=== PATIENT | female | born 1955 | race African-American/Black ===

== ENCOUNTER 2016-09-28 22:21 | Inpatient (IN) | payer OTHER ==
--- NOTE | ~2016-09-28 | CR72 ---
[facility] A Service of [facility] & [facility] RADIOLOGY TEXT RESULTS PATIENT: IVELISSE ALFONSO LOCATION: [facility] 463- : 56 UNIT #: [id number] AGE: [address]: Lillie Stanley MD SEX: F ORDER DR: [id number] [facility] [address] [place], [place] [address] [id number] I MR#: [id number] Acc #: [id number] NAME: IVELISSE ALFONSO : 1955 SEX: F STUDY DATE/TIME: 09/28/2016 19:42 UNIT: CEDOF ROOM: [id number] STUDY DESCRIPTION: CR Chest Single View Portable Attending Physician: Ina Fonseca M.D. Ordering Physician: Ingrid Robins M.D. Primary Care Physician: Evy Mendoza M.D. MEDICAL IMAGING REPORT This report is preliminary unless electronic signature is present EXAM Portable chest 09/28 COMPARISON 09/19/2014 HISTORY History supplied is shortness of breath, nausea, weakness beginning today. FINDINGS An AP portable view is obtained. Cardiac size in the patient appears normal. Vascular pattern is normal. Lungs are clear. CONCLUSION Negative portable chest. Dictated by... Kalia Guerrero M.D. THIS IS AN ELECTRONICALLY VERIFIED REPORT Kalia Guerrero M.D. at 09/29/2016 10:35 AM VIPUL/davon TD: 09/29/2016 05:05 JOB #: [id number] MEDICAL IMAGING REPORT Page 1 of 1 COPY
--- NOTE | ~2016-09-28 | CO ---
Unit #: [id number] #: [id number] Patient: IVELISSE ALFONSO [id number] [address] [place], [place] [address] [id number] I MR#: [id number] NAME: IVELISSE ALFONSO ROOM: 463 Age: 61 Sex: F Admission Date: 09/29/2016 : 1955 Attending Physician: Lillie Stanley M.D. Primary Care Physician: Evy Mnedoza M.D. Consultation Date: 09/30/2016 CONSULTATION REPORT REASON FOR CONSULTATION Staphylococcus aureus bacteremia. HISTORY OF PRESENT ILLNESS The patient is a 61-year-old female with a history of asthma, schizoaffective disorder, ovarian cancer, and postoperative PE, admitted with lightheadedness. Did not have any fever or chills with no loss of consciousness. No chest pain. No shortness of breath. She had a recent treatment for possible urinary tract infection with ciprofloxacin. She was a little bit hypotensive when she came in. As part of workup, two sets of blood culture were done; one is being reported as Staphylococcus aureus; second is gram-positive cocci. A transesophageal echo has been ordered. She is on vancomycin. Infectious Disease consultation is requested for further evaluation and antibiotic management. The patient at this time is complaining of some back pain and hip pain, which to the patient is not new, but may have increased in the last few weeks. No trauma. No injury. PAST MEDICAL HISTORY 1. Asthma. 2. Schizoaffective disorder. 3. Degenerative joint disease. 4. Herniated disk. 5. Ovarian cancer, status post total abdominal hysterectomy and bilateral salpingo-oophorectomy and chemotherapy. 6. Pulmonary embolism. 7. Right wrist surgery. 8. Radiation therapy for ovarian cancer. SOCIAL HISTORY Noncontributory. FAMILY HISTORY Noncontributory. ALLERGIES She is allergic to penicillin, which causes hives. MEDICATIONS Current medication list reviewed. Antibiotics include vancomycin. PHYSICAL EXAMINATION GENERAL: Lying in bed, does not seem to be in any distress. VITAL SIGNS: T-max 100.2, temperature 97.5, pulse 73, respirations 18, Unit #: [id number] #: [id number] Patient: IVELISSE ALFONSO blood pressure 131/75. HEENT: Unremarkable. CHEST: Clear to auscultation. HEART: Normal S1 and S2. ABDOMEN: Soft, nontender. EXTREMITIES: Show no edema. No significant focal tenderness on the spine was noted and the right hip was also without any significant tenderness or limitation with range of movement. DIAGNOSTIC STUDIES IMAGING STUDIES: CT angio negative for pulmonary embolism. Some hilar lymphadenopathy was noted. Chest x-ray negative for acute infiltrates. Lower extremity Doppler negative for deep vein thrombosis. LABORATORY RESULTS: BUN 12, creatinine 0.5. Lactic acid 0.8. WBC 13.2, hemoglobin 10.4, platelets 172. Urinalysis unremarkable. Blood culture 1/2 Staphylococcus aureus, sensitivity is pending; the other one is gram-positive cocci in clusters, identification and sensitivity are pending. ASSESSMENT Staphylococcus aureus bacteremia, question source. PLAN At this time, I noted that transesophageal echo has been ordered, which I think can be held off at this time as we have more obvious possibility of a hip or a back infection with bacteremia, low-grade fever, and pain in those 2 areas plus transesophageal echo may be a little too early as if it is negative and there is no other source identified. It will need to be repeated. At this time, I would go ahead and hold on the transesophageal echo, get a 2D echo, follow up on the results of MRI of the spine and hip that has been ordered, continue with vancomycin, follow up on the final identification of the cultures. Further recommendation depending upon the course. I would like to thank, Dr. Stanley, for requesting us to participate in the care of this patient. We will follow this patient along with you. Dictated by... Keith Esquivel TD: 10/03/2016 02:07 JOB #: [id number] Unit #: [id number] #: [id number] Patient: IVELISSE ALFONSO CONSULTATION REPORT Page 1 of 1 X Gwyn Mahoney MD CONSULTATION REPORT
--- NOTE | ~2016-09-28 | MR81 ---
[facility] A Service of [facility] & [facility] RADIOLOGY TEXT RESULTS PATIENT: IVELISSE ALFONSO LOCATION: [facility] 463-01 : 57 UNIT #: [id number] AGE: [address]: Lillie Stanley MD SEX: F ORDER DR: [id number] [facility] [address] [place], [place] [address] [id number] I MR#: [id number] Acc #: [id number] NAME: IVELISSE ALFONSO : 1955 SEX: F STUDY DATE/TIME: 10/01/2016 9:09 UNIT: [facility] ROOM: [facility] STUDY DESCRIPTION: MR Hip WWo Contrast Rt Attending Physician: Lillie Stanley M.D. Ordering Physician: Lillie Stanley M.D. Primary Care Physician: vEy Mendoza M.D. MRI CENTER REPORT This report is preliminary unless electronic signature is present. EXAM MRI of the right hip and pelvis. HISTORY Worsening right hip pain, staph aureus bacteremia. Clinical concern for septic arthritis. Fever, back pain. TECHNIQUE Multiplanar multiecho imaging was performed of the hips and pelvis utilizing a high field magnet and dedicated protocol. Axial T1-weighted images were performed following IV gadolinium. FINDINGS Bone structure and alignment appears normal. No focal marrow edema is identified to suggest occult fracture, bone lesion, or septic joint. Detailed imaging of the hip joints demonstrates mild arthritic changes of the right hip joint with some asymmetric joint space narrowing and a small amount of subchondral cystic change weightbearing aspect of the right hip joint. No significant articular cartilage loss demonstrated. No hip effusion. No abnormal enhancement postcontrast. SI joints appear normal. There is mild hamstring tendinopathy at the origin of the hamstrings bilaterally. Internal pelvic structures unremarkable. Normal tendinous attachments about the hips. IMPRESSION 1. No MRI findings to suggest septic arthritis of the hip. Patient may demonstrate some very early degenerative changes of both hips, right greater than left, but again no evidence of a joint effusion or significant marrow edema. 2. Minimal tendinopathy origin of the hamstrings bilaterally, probably not clinically significant. STS[facility] A Service of [facility] & [facility] RADIOLOGY TEXT RESULTS PATIENT: IVELISSE ALFONSO LOCATION: [facility] 463-01 : [birth year] UNIT #: [id number] AGE: [address]: Lillie Stanley MD SEX: F ORDER DR: Dictated by... Yosef Coats M.D. THIS IS AN ELECTRONICALLY VERIFIED REPORT Yosef Coats M.D. at 10/02/2016 10:51 PM TAVON/good TD: 10/02/2016 07:33 JOB #: [id number] MRI CENTER REPORT Page 1 of 1 COPY
--- NOTE | ~2016-09-28 | EKG ---
PATIENT: IVELISSE ALFONSO UNIT #: [id number] Ventricular Rate: 133 BPM Atrial Rate: 133 BPM P-R Interval: 154 ms QRS Duration: 82 ms Q-T Interval: 272 ms QTC Calculation(Bezet): 404 ms P [place]: 55 degrees Calculated R [place]: 17 degrees Calculated T [place]: 38 degrees Diagnosis Line: Sinus tachycardia Diagnosis Line: Left atrial enlargement Diagnosis Line: Otherwise normal ECG Diagnosis Line: When compared with ECG of 16-AUG-2015 20:45, Diagnosis Line: No significant change was found Diagnosis Line: Confirmed by ANGEL KENT MD ([id number]) on 09/30/2016 Diagnosis Line: 9:32:55 AM INTERPRETING MD: DONTE ARROYO
--- NOTE | ~2016-09-28 | MR112 ---
[facility] A Service of [facility] RADIOLOGY TEXT RESULTS PATIENT: IVELISSE ALFONSO LOCATION: [facility] 463-01 : [birth year] UNIT #: [id number] AGE: [address]: Lillie Stanley MD SEX: F ORDER DR: [id number] [facility] [address] [place], [place] [address] [id number] I MR#: [id number] Acc #: [id number] NAME: IVELISSE ALFONSO : 1955 SEX: F STUDY DATE/TIME: 10/01/2016 9:09 UNIT: [facility] ROOM: [facility] STUDY DESCRIPTION: MR Lumbar WWo Contrast Attending Physician: Lillie Stanley M.D. Ordering Physician: Lillie Stanley M.D. Primary Care Physician: Evy Mendoza M.D. MRI CENTER REPORT This report is preliminary unless electronic signature is present. EXAM MRI lumbar spine without and with IV gadolinium. HISTORY Bacteremia. Minimal back pain for 4 days. FINDINGS MRI lumbar spine was performed without and with IV gadolinium. Lumbar alignment is satisfactory. Normal signal in the tip of the conus at L1-L2. Normal marrow signal. Normal intervertebral disc signal. There is minimal disc bulging at L1-L2, primarily to the right of midline. There is also minimal diffuse disc bulging at L5-S1. No additional lumbar disc bulge or protrusion. Mild bilateral facet and ligamentous hypertrophy at all lumbar levels, slightly greater at L5-S1, but no significant central canal narrowing or outlet foraminal narrowing. No abnormal enhancement with gadolinium. IMPRESSION 1. No focal disc bulge or protrusion. 2. No abnormal enhancement with gadolinium. 3. No significant lumbar central canal narrowing or outlet foraminal narrowing. 4. Very mild disc bulging at L1-L2 and L5-S1. 5. Mild multilevel degenerative facet arthropathy and mild ligamentous hypertrophy. Dictated by... Franco Craig M.D. [facility] A Service of [facility] RADIOLOGY TEXT RESULTS PATIENT: IVELISSE ALFONSO LOCATION: [facility] 463-01 : 57 UNIT #: [id number] AGE: [address]: Lillie Stanley MD SEX: F ORDER DR: THIS IS AN ELECTRONICALLY VERIFIED REPORT Francomichelle Craig M.D. at 10/02/2016 5:15 PM DFL/maikel TD: 10/02/2016 05:27 JOB #: [id number] MRI CENTER REPORT Page 1 of 1 COPY
--- NOTE | ~2016-09-28 | DS ---
Unit #: [id number] #: [id number] Patient: IVELISSE ALFONSO [id number] [address] [address] [id number] I MR#: [id number] NAME: IVELISSE ALFONSO ROOM: 463 Age: 61 Sex: F Admission Date: 09/29/2016 : 1955 Discharge Date: 10/04/2016 Attending Physician: Lillie Stanley M.D. Primary Care Physician: Eyv Mendoza M.D. DISCHARGE SUMMARY ADDENDUM HOSPITAL COURSE The patient has fortunately been accepted to [facility] for IV antibiotics and will be discharged there instead of home with home health. DISCHARGE INSTRUCTIONS/MEDICATIONS As previously dictated. Dictated by... Lillie Stanley M.D. SHANI/pete TD: 10/04/2016 13:34 JOB #: [id number] DISCHARGE SUMMARY Page 1 of 1 X Lillie Stanley MD X DISCHARGE SUMMARY
--- NOTE | ~2016-09-28 | US84 ---
[id number] [facility] [address] [place], [place] [address] [id number] I MR#: [id number] Acc #: [id number] NAME: IVELISSE ALFONSO : 1955 SEX: F STUDY DATE/TIME: 09/29/2016 16:20 UNIT: [facility] ROOM: 463 STUDY DESCRIPTION: US LE Veins Complete Puma Stdy Attending Physician: Lillie Stanley M.D. Ordering Physician: Ina Fonseca M.D. Primary Care Physician: Evy Mendoza M.D. MEDICAL IMAGING REPORT This report is preliminary unless electronic signature is present EXAM Bilateral lower extremity Doppler venous ultrasound. DATE OF EXAMINATION 09/29/2016 HISTORY Bilateral lower extremity pain left greater right for the past 2-3 days. Previous history of blood clots in 2011, currently on blood thinners. COMPARISON None. TECHNIQUE Venous ultrasound examination of both lower extremities was performed using grayscale, spectral Doppler and color flow Doppler imaging. FINDINGS The examination is negative. There is no evidence of deep venous thrombus from the groin to the lower calf bilaterally. Visualized greater saphenous veins are also patent. IMPRESSION Negative examination. No evidence of lower extremity deep venous thrombosis. Dictated by... Tiny Barker M.D. THIS IS AN ELECTRONICALLY VERIFIED REPORT Tiny Barker M.D. at 09/30/2016 5:13 PM [place] TD: 09/29/2016 18:34 JOB #: [id number] MEDICAL IMAGING REPORT Page 1 of 1 COPY
--- NOTE | ~2016-09-28 | CO ---
Unit #: [id number] #: [id number] Patient: IVELISSE ALFONSO [id number] [address] [place], [place] [address] [id number] I MR#: [id number] NAME: IVELISSE ALFONSO ROOM: 463 Age: 61 Sex: F Admission Date: 09/29/2016 : 1955 Attending Physician: Lillie Stanley M.D. Primary Care Physician: Evy Mendoza M.D. Consultation Date: 09/29/2016 CONSULTATION REPORT REASON FOR CONSULT Thyrotoxicosis. HISTORY OF PRESENT ILLNESS This is a 61-year-old black female with history of schizoaffective disorder. She presented to the emergency room for not feeling well, having weakness, dizzy spells, palpitations, and she lost more than 30 pounds over the last 4-6 weeks. Also has some nausea. In the emergency room she had a fever of 101, and her heart rate was 120 to 130s. She was started on beta-blockers. On further labs she was found to have TSH of 0.05, free T4 of 3.11. I have been asked to see the patient for further evaluation. REVIEW OF SYSTEMS A 10-point review of systems is completed. Please see HPI. Remarkable for weight loss, palpitations, nausea, vomiting, weakness, fatigue and tremors. PAST MEDICAL HISTORY 1. Schizoaffective disorder. 2. Asthma. 3. History of postop PE. 4. History of ovarian cancer. PAST SURGICAL HISTORY Hysterectomy. ALLERGIES Penicillin. HOME MEDICATIONS List is reviewed. CURRENT MEDICATIONS Include propranolol 20 mg b.i.d., Tapazole 10 mg t.i.d. PHYSICAL EXAMINATION GENERAL: She is comfortable, no acute distress. VITAL SIGNS: Her vitals are stable. Temperature is 97.9, pulse 76, respirations 18, blood pressure 137/95. HEENT: EOMI. Pupils equally react to light. NECK: Supple. She does have thyromegaly and (1) on exam. No bruit noted. CHEST: Good air entry. CVS: Regular rhythm. S1 and S2. No murmurs. Unit #: [id number] #: [id number] Patient: LAGANTTA,PERITA ABDOMEN: Soft. Nontender. Bowel sounds positive. EXTREMITIES: Has some fine tremors of upper extremities. NEUROLOGIC: Nonfocal. Moving all extremities. DIAGNOSTIC STUDIES LABORATORY: Labs were reviewed. TSH 0.05, free T4 3.11. ASSESSMENT Thyrotoxicosis that seems most likely due to primary hyperthyroidism. PLAN The patient is clinically symptomatic. Agree with methimazole. Will change the dose to 10 mg twice daily. Continue propranolol 20 mg b.i.d. She will need thyroid uptake scan as an outpatient. I will see her back in my office in 2-3 weeks for further management. Dictated by... Keith Jensen/ty TD: 09/30/2016 07:33 JOB #: [id number] CONSULTATION REPORT Page 1 of 1 X Yuki Guaman MD X CONSULTATION REPORT
--- NOTE | ~2016-09-28 | MR175 ---
[facility] A Service of [facility] & [facility] RADIOLOGY TEXT RESULTS PATIENT: IVELISSE ALFONSO LOCATION: [facility] 463-01 : 57 UNIT #: [id number] AGE: [address]: Lillie Stanley MD SEX: F ORDER DR: [id number] [facility] [address] [place], [place] [address] [id number] I MR#: [id number] Acc #: [id number] NAME: IVELISSE ALFONSO : 1955 SEX: F STUDY DATE/TIME: 10/01/2016 9:09 UNIT: [facility] ROOM: [facility] STUDY DESCRIPTION: MR Thoracic WWo Contrast Attending Physician: Lillie Stanley M.D. Ordering Physician: Lillie Stanley M.D. Primary Care Physician: Evy Mendoza M.D. MRI CENTER REPORT This report is preliminary unless electronic signature is present. EXAM MRI thoracic spine without and with IV gadolinium. HISTORY Bacteremia. Back pain for 4 days. Mid to low back pain. Fever. FINDINGS MRI thoracic spine was performed without and with IV gadolinium. Exam sensitivity is partly limited by motion. No thoracic cord signal abnormality or enlargement or displacement. No marrow edema. No abnormal intervertebral disc signal. Mild degenerative disc space narrowing at multiple mid-thoracic levels. Small left paracentral disc protrusion at T5-T6. No additional disc bulge or protrusion is identified. No significant central canal narrowing. No abnormal enhancement with gadolinium. No significant central canal narrowing or outlet foraminal narrowing is identified. IMPRESSION 1. Mild left paracentral disc bulge T5-T6. 2. No additional thoracic disc bulge or protrusion. 3. No marrow signal abnormality. No significant thoracic central canal narrowing or outlet foraminal narrowing. 4. No abnormality is identified within the thoracic cord. 5. No abnormal enhancement with gadolinium. Dictated by... Franco Craig M.D. THIS IS AN ELECTRONICALLY VERIFIED REPORT Franco Craig M.D. at 10/02/2016 5:14 PM DFL/rnr [facility] A Service of [facility] & [facility] RADIOLOGY TEXT RESULTS PATIENT: IVELISSE ALFONSO LOCATION: [facility] 463-01 : 57 UNIT #: [id number] AGE: [address]: Lillie Stanley MD SEX: F ORDER DR: TD: 10/02/2016 05:39 JOB #: [id number] MRI CENTER REPORT Page 1 of 1 COPY
--- NOTE | ~2016-09-28 | DS ---
Unit #: [id number] #: [id number] Patient: IVELISSE RANKIN 100[address] [place], [place] [address] [id number] I MR#: [id number] NAME: IVELISSE RANKIN ROOM: 463 Age: 61 Sex: F Admission Date: 09/29/2016 : 1955 Discharge Date: 10/04/2016 Attending Physician: Lillie Stanley M.D. Primary Care Physician: Evy Mendoza M.D. DISCHARGE SUMMARY PRINCIPAL DIAGNOSES 1. Sepsis secondary to methicillin-sensitive Staphylococcus aureus bacteremia with unknown primary infection. 2. Hyperthyroidism. 3. Normocytic anemia. 4. Schizoaffective disorder maintained on Invega. 5. Degenerative disc disease of the lumbar spine. 6. Asthma. 7. History of ovarian cancer. 8. Obesity. 9. Moderate mitral regurgitation. CONSULTANTS 1. Dr. Mahoney, Infectious Disease. 2. Dr. Guaman, Endocrinology. PROCEDURES 1. Two-dimensional echocardiogram on September 30, 2016, with ejection of 50 to 55%. Impaired relaxation consistent with grade one diastolic dysfunction noted. 2. Transesophageal echocardiogram on October 03, 2016, with ejection fraction of 50 to 55%. No evidence of PFO or atrioseptal defect. No vegetation. No clot in the left atrial appendage. Thickened mitral valve and aortic valve leaflets are noted. Moderate mitral regurgitation. Mild atherosclerosis of the aorta noted. 3. Chest x-ray on September 28, 2016, which was normal. 4. CT angiogram of the chest on September 29, 2016, which was negative for PE. Subcarinal and hilar adenopathy is noted. This causes extrinsic compression of the right upper lobe pulmonary artery. Small nodule in the right lower lobe is stable since 2010. 5. Bilateral extremity venous Doppler which is negative for PE. 6. MRI of lumbar spine with and without contrast on October 01, 2016, with no abnormal enhancement. No significant lumbar central canal narrowing or outlet foraminal narrowing. Disc bulging at L1-2 and L5-S1. 7. MRI of thoracic spine with and without contrast on October 01, 2016, with left paracentral disc bulge at T5-T6. No marrow signal abnormality. No thoracic central canal narrowing or outlet foraminal narrowing. 8. MRI of right hip with and without contrast on October 01, 2016, with no evidence of septic arthritis. Degenerative changes noted. CLINICAL HISTORY AND HOSPITAL COURSE Ms. Rankin is a nice 61-year-old -[place] female who presents to Unit #: [id number] #: [id number] Patient: IVELISSE RANKIN the emergency department with fever and lightheadedness. She was also having nausea, vomiting. Please refer to H and P for further details. The patient was febrile in the emergency department with a temperature of 101.6. She was also tachycardiac with a heart rate in the thirties. Initial screening for infection was negative in the ER including a negative chest x-ray, CT angiogram of the chest and urinalysis and she was initially placed in observation for evaluation. In regards to the patient's tachycardia, she did have a TSH done and her TSH was found to be significantly low at less than 0.05. This was found in conjunction with an elevated free T4 of 3.11. The patient was placed on methimazole empirically and Dr. Guaman was consulted. Dose of methimazole was decreased and patient was maintained on her home dose of propranolol. The plan is for patient to follow up with Dr. Guaman as an outpatient for a thyroid uptake scan and further definitive treatment. The patient's fever and tachycardia has improved on treatment. It was initially felt that perhaps the patient's hyperthyroidism was causing her symptoms. However, blood cultures done upon admission, one of two grew methicillin-sensitive Staphylococcus aureus and patient was changed to inpatient status. She was empirically started on vancomycin prior to identification of culture and, upon identification of Staph. aureus, Infectious Disease was consulted. In a search for a primary source of infection, the patient under MRI of her back and hip given these were new and/or worsening pain. However, all these MRIs were negative. Initial transthoracic echocardiogram was normal and DIANE a few days later was also negative. A source of infection remains unclear but recent blood cultures are remaining negative. I will not second blood culture upon admission did ultimately also grow MSSA. The patient will be maintained on Kefzol through date as outlined above and have removal of mid line following discontinuation of antibiotics. The patient's other chronic conditions remained stable. She can be discharged home later today with plans for home health. DISCHARGE CONDITION Stable. DISCHARGE STATUS Discharged to home with home health for IV antibiotics. DISCHARGE MEDICATIONS 1. Gabapentin 400 mg p.o. t.i.d. with 800 mg at bedtime. 2. Benadryl 50 mg half a tablet p.o. t.i.d. 3. Arimidex 1 mg daily. 4. Methimazole 10 mg p.o. b.i.d. 5. Inderal 40 mg at bedtime. 6. Zocor 20 mg at bedtime. 7. Bromocriptine 5 mg daily. 8. Diclofenac 75 mg b.i.d. 9. Baclofen 10 mg p.o. t.i.d. 10. Cephazolin 2 gm IV q.8 hours to be dosed through October 17, 2016. 11. The patient will continue Invega junctions monthly 156 mg as being received through [facility]. DISCHARGE INSTRUCTIONS 1. The patient was instructed to follow a Heart Healthy diet. 2. She can increase her activity as tolerated. Unit #: [id number] #: [id number] Patient: IVELISSE RANKIN 3. She needs weekly CBC, BMP on antibiotics with results faxed to Dr. Mott/Dr. Mahoney. 4. She discontinuation of mid line after last dose of IV antibiotics. FOLLOWUP 1. The patient will follow up with Dr. Guaman in approximately four weeks and, again, needs outpatient thyroid uptake scan and likely will require referral from her primary care provider. 2. She can follow up with her primary care provider, Evy Mendoza M.D., in two weeks and will continue, again, with Invega as she was receiving as an outpatient. Time spent on discharge-32 minutes. Dictated by... Lillie Stanley M.D. Declan/khai TD: 10/04/2016 13:09 JOB #: [id number] DISCHARGE SUMMARY Page 1 of 1 X Lillie Stanley MD X DISCHARGE SUMMARY
--- NOTE | ~2016-09-28 | HP ---
Unit #: [id number] #: [id number] Patient: IVELISSE ALFONSO 338247 [address] [place], [place] [address] [id number] I MR#: [id number] NAME: IVELISSE ALFONSO ROOM: 64885 Age: 61 Sex: F Admission Date: 09/29/2016 : 1955 Attending Physician: Ina Fonseca M.D. Primary Care Physician: Evy Mendoza M.D. HISTORY AND PHYSICAL CHIEF COMPLAINT Postural lightheadedness, sinus tachycardia, nausea and vomiting. HISTORY This pleasant 61-year-old female with asthma, schizoaffective disorder, treatment for ovarian cancer with remote postop PE, is admitted for complaints of lightheadedness. Patient states that she was in her usual state of health until four days prior to admission when she began to experience postural lightheadedness. He has been somewhat short of breath recently with chest discomfort. Notes left calf pain. More recently nausea and vomiting. She was seen at [facility] and given her monthly Invega Sustenna injection. She was told that she was tachycardic at that time with an elevated blood pressure. She presents to this emergency department where she does have a temperature of 101.6. States that she was placed on Cipro recently for UTI and dysuria with improvement of her symptoms. In the ER, patient's heart rates have been in the 130s. Her workup in terms of infectious etiology thus far is negative. In the ER she was boluses with IV fluids, given Tylenol, Zofran, and currently is feeling somewhat improved. She denies definite cough with the above, diarrhea. Heart rate has improved also to 119 down from 134. PAST MEDICAL HISTORY 1. Asthma. 2. Schizoaffective disorder. 3. Degenerative joint disease. 4. Herniated disc. 5. Patient takes bromocriptine due to what sounds to be side effects from antipsychotic medications, likely elevated prolactin level with breast discharge. 6. Ovarian cancer, status post MAKAYLA and BSO, along with chemotherapy. The patient did have a recurrence requiring radiation. 7. Right wrist surgery. 8. BTL. 9. Postop PE some years ago after surgery for ovarian cancer. Patient is status post IVC filter. ALLERGIES Allergies to Penicillin resulting in hives. HOME MEDICATIONS Voltaren 75 mg b.i.d.; Neurontin 400 mg t.i.d. and two tablets at bedtime; baclofen 10 mg t.i.d.; Benadryl 25 mg t.i.d.; bromocriptine 5 mg q. a.m.; Unit #: [id number] #: [id number] Patient: IVELISSE ALFONSO Arimidex 1 mg daily; Invega Sustenna 156 mg injectable each month, last injection was yesterday. FAMILY HISTORY CAD. SOCIAL HISTORY The patient lives alone, stopped smoking two years ago, does not drink alcohol or use illicit drugs. REVIEW OF SYSTEMS Notable for postural lightheadedness, nausea and vomiting. Some palpitation, shortness of breath, chest discomfort, asthma, schizoaffective disorder, DJD, remote PE, ovarian cancer, above mentioned surgeries. All other systems were reviewed and are otherwise negative. PHYSICAL EXAMINATION GENERAL: Pleasant, moderately obese, 61-year-old female currently in no acute distress. VITAL SIGNS: Temperature was as high as 101.6, heart rate 134, respirations 16, blood pressure 135/88, O2 saturation 97% on room air. HEENT: Eyes - PERRLA, Extraocular muscles are intact. Pharynx is benign. NECK: Supple without adenopathy or thyromegaly. CHEST: Clear. CARDIAC: Tachy S1 and S2 without S3, S4 or murmur. ABDOMEN: Bowel sounds are present. Mild epigastric tenderness. No rebound, guarding. No hepatosplenomegaly or masses. Well healed scars are note. EXTREMITIES: Without clubbing, cyanosis or edema. Pedal pulses are present. NEUROLOGIC: Patient is awake, alert, and oriented. Cranial nerves are intact. Equal strength throughout. DIAGNOSTIC STUDIES LABORATORY STUDIES: Hematocrit is 35.5, white blood count is 15. Normal platelet count. Cardiac markers are negative. Coags are normal. SMA 12 - CO2 21, alk phos 109. Urinalysis - 2-5 white cells, 2-5 red cells. IMAGING STUDIES: Chest x-ray - no acute disease. CARDIOLOGY STUDIES: EKG showed sinus tachycardia rate 133. ASSESSMENT 1. Postural lightheadedness for the past four days. The patient notes some shortness of breath, atypical chest discomfort, and over the past day nausea and vomiting. She presents with a low grade fever. She states she was placed on Cipro recently for a UTI. Urinalysis looks to be fairly clear. Her symptoms are improving after IV fluids but will need to workup further. 2. Complaints of distal left leg pain. 3. Sinus tachycardia. 4. Asthma. 5. Schizoaffective disorder. 6. Remote PE, status post IVC filter. 7. Previous treatment for ovarian cancer. Please see above details. PLANS 1. IV fluids and antiemetics. Unit #: [id number] #: [id number] Patient: IVELISSE ALFONSO 2. Obtain CTA of the chest and Dopplers of the legs. 3. Check thyroid function test. 4. DVT prophylaxis. 5. Continue quinolone at this time. 6. Blood cultures are pending. 7. Further workup depending on above. 1. Dictated by Ina Fonseca M.D. AML/ts TD: 09/29/2016 05:30 JOB #: [id number] HISTORY AND PHYSICAL Page 1 of 1 X Ina Fonseca MD X HISTORY AND PHYSICAL
--- NOTE | ~2016-09-28 | CT16 ---
[facility] A Service of [facility] RADIOLOGY TEXT RESULTS PATIENT: IVELISSE ALFONSO LOCATION: [facility] 463-01 : [birth year] UNIT #: [id number] AGE: [address]: Lillie Stanley MD SEX: F ORDER DR: [id number] [facility] [address]. [place], [place] [address] [id number] I MR#: [id number] Acc #: [id number] NAME: IVELISSE ALFONSO : 1955 SEX: F STUDY DATE/TIME: 09/29/2016 6:35 UNIT: CEDOF ROOM: 71667 STUDY DESCRIPTION: CT Angio Chest for PE Attending Physician: Ina Fonseca M.D. Ordering Physician: Ina Fonseca M.D. Primary Care Physician: Evy Mendoza M.D. MEDICAL IMAGING REPORT This report is preliminary unless electronic signature is present EXAM Chest CT with contrast with CT angiography HISTORY Lightheadedness, palpitations, dizziness, chest pain, back pain and fever since a recent urinary tract infection. TECHNIQUE Axial imaging was obtained with contrast. 80 mL of Isovue was used. CT angiography was performed with thick sliding MIPs in the sagittal and coronal projections. This CT examination was performed with one or more of the following radiation dose reduction techniques: automatic exposure control, adjustment of mA and/or kV according to patient size, and iterative reconstruction. FINDINGS Chest images at mediastinal window show no pulmonary artery filling defects to suggest emboli. Mildly prominent subcarinal lymph nodes are seen measuring 14 x 23 mm. There are small lymph nodes noted at both jesus. There are no pulmonary emboli identified. Of note is asymmetric poor flow in the right upper lobe pulmonary artery. This appears to be secondary to extrinsic compression from lymph nodes at the right hilum. This is likely a chronic process. No pleural or pericardial fluid is seen. Lung window imaging shows no suspicious infiltrates. There is a peripheral noncalcified nodule in the right lower lobe. It measures 5 x 7 mm. It was present on a previous CT in 2010 and has not changed. The adenopathy in the subcarinal region and right hilum is more prominent than on the previous CT in 2010 and the flow disturbance to the right upper lobe is new. IMPRESSION 1. No evidence of acute pulmonary embolism. [facility] A Service of [facility] RADIOLOGY TEXT RESULTS PATIENT: IVELISSE ALFONSO LOCATION: [facility] 463-01 : [birth year] UNIT #: [id number] AGE: [address]: Lillie Stanley MD SEX: F ORDER DR: 2. Subcarinal and hilar adenopathy is noted and has progressed since a previous CT in 2010. The right-sided hilar adenopathy causes extrinsic compression of the right upper lobe pulmonary artery and there is poor pulmonary artery flow to the right upper lobe as a result. There is however no evidence of acute pulmonary embolism in this area. 3. Small nodule in the right lower lobe is unchanged since 2010 and no further followup is needed. STAT * RESULT Dictated by... Norberto Greene M.D. THIS IS AN ELECTRONICALLY VERIFIED REPORT Norberto Greene M.D. at 09/29/2016 10:45 AM [place] TD: 09/29/2016 07:45 JOB #: [id number] MEDICAL IMAGING REPORT Page 1 of 1 COPY
[2016-09-28 21:15] LABS: POC - CKMB <1.0 ng/mL (0.0-7.9); POC - TROPONIN <0.05 ng/mL (<=0.05)
[2016-09-28 21:16] LABS: BASOPHIL% 0.1 % (0-2.5); DIFF IND NO; HEMATOCRIT 35.4 % (35.0-45.0); HEMOGLOBIN 11.1 gm/dL (12.0-16.0); LYMPHOCYTE# 0.9 X10e3 (1.0-3.5); LYMPHOCYTE% 5.9 % (17.0-45.0); MEAN CORPUSCULAR HEMOGLOBIN 25.7 PG (28-34); MEAN CORPUSCULAR HGB CONC 31.4 g/dL (30-36); MEAN PLATELET VOLUME 8.4 FL (6.5-11.5); MONOCYTE# 0.9 X10e3 (0-1.0); MONOCYTE% 6.2 % (3.0-12.0); NEUTROPHIL# 13.2 X10e3 (1.5-7.1); NEUTROPHIL% 87.8 % (40-75); PLATELET COUNT 193 X10e3 (140-420); RED BLOOD COUNT 4.32 X10e (3.90-5.30); RED CELL DISTRIBUTION WIDTH 13.2 % (11.0-15.5)
[2016-09-28 21:20] LABS: INR 1.1; PARTIAL THROMBOPLASTIN TIME 27.7 SECONDS (23.5-31.3); PROTHROMBIN TIME (PATIENT) 11.5 SECONDS (9.6-11.5)
[2016-09-28 21:23] LABS: INFLUENZA A NEG (NEG); INFLUENZA B NEG (NEG)
[2016-09-28 21:27] LABS: ALBUMIN SERUM 3.5 g/dL (3.5-5.0); ALKALINE PHOSPHATASE 109 U/L (32-92); ALT (SGPT) 30 U/L (10-40); AST (SGOT) 33 U/L (10-42); BILIRUBIN, DIRECT 0.1 mg/dL (0.0-0.2); BILIRUBIN,INDIRECT 0.5 mg/dL (0.0-0.9); BILIRUBIN,TOTAL 0.6 mg/dL (0.2-2.0); BLOOD UREA NITROGEN 13 mg/dL (9-23); BUN/CREATININE RATIO 16.25; CALCIUM SERUM 9.4 mg/dL (8.4-10.2); CARBON DIOXIDE 21 mmol/L (22-31); CHLORIDE 109 mmol/L (100-111); CREATININE SERUM 0.8 mg/dL (0.6-1.4); GLOM FILT RATE Estimated ABOVE60 mL/min (>60); GLUCOSE FASTING 100 mg/dL (70-110); POTASSIUM 4.1 mmol/L (3.5-5.1); PROTEIN TOTAL SERUM 7.5 g/dL (6.0-8.3); SODIUM 141 mmol/L (135-145)
[~2016-09-28 22:21] MED LIST: MEDROL DOSEPAK4 MG PO; ROBITUSSIN100 MG/51 PO; VOLTAREN75 MG PO; ZITHROMAX PO; ZYRTEC-D TABLE1 EACH PO
[2016-09-28 22:50] LABS: URINE SOURCE CLEAN CATCH
[2016-09-28 22:55] LABS: URINE APPEARANCE CLEAR; URINE BILIRUBIN NEG (NEG); URINE BLOOD NEG (NEG); URINE COLOR YELLOW; URINE GLUCOSE NEG (NEG); URINE KETONE TRACE (NEG); URINE LEUKOCYTE ESTERASE TRACE (NEG); URINE NITRATE NEG (NEG); URINE PROTEIN NEG (NEG); URINE SPECIFIC GRAVITY 1.016 (1.003-1.035)
[2016-09-28 22:57] LABS: CULTURE INDICATED? NO; URINE BACTERIA AUWI NEG (NEGATIVE); URINE SQUAMOUS EPITHELIAL CELL OCC /[HPF]
[2016-09-29 04:30] LABS: BASOPHIL% 0.3 % (0-2.5); HEMATOCRIT 29.8 % (35.0-45.0); HEMOGLOBIN 9.4 gm/dL (12.0-16.0); LYMPHOCYTE# 1.2 X10e3 (1.0-3.5); LYMPHOCYTE% 9.1 % (17.0-45.0); MEAN CORPUSCULAR HEMOGLOBIN 25.9 PG (28-34); MEAN CORPUSCULAR HGB CONC 31.6 g/dL (30-36); MEAN PLATELET VOLUME 8.4 FL (6.5-11.5); MONOCYTE# 0.9 X10e3 (0-1.0); MONOCYTE% 6.9 % (3.0-12.0); NEUTROPHIL# 11.4 X10e3 (1.5-7.1); NEUTROPHIL% 83.7 % (40-75); PLATELET COUNT 176 X10e3 (140-420); RED BLOOD COUNT 3.64 X10e (3.90-5.30); RED CELL DISTRIBUTION WIDTH 13.3 % (11.0-15.5); WHITE BLOOD COUNT 13.6 X10e3 (4.0-10.5)
[2016-09-29 04:31] LABS: DIFF IND NO
[2016-09-29 05:02] LABS: BLOOD UREA NITROGEN 12 mg/dL (9-23); BUN/CREATININE RATIO 17.14; CALCIUM SERUM 8.7 mg/dL (8.4-10.2); CARBON DIOXIDE 22 mmol/L (22-31); CHLORIDE 113 mmol/L (100-111); CK TOTAL 37 IU/L (26-140); CREATININE SERUM 0.7 mg/dL (0.6-1.4); GLOM FILT RATE Estimated ABOVE60 mL/min (>60); GLUCOSE FASTING 131 mg/dL (70-110); POTASSIUM 3.7 mmol/L (3.5-5.1); SODIUM 143 mmol/L (135-145)
[2016-09-29 06:08] LABS: THYROID STIMULATING HORMONE 0.05 uIU/ml (0.34-5.60)
[2016-09-29 06:15] LABS: FREE THYROXIN (T4) 3.11 ng/dL (0.58-1.64)
[2016-09-30 04:12] LABS: BASOPHIL% 0.3 % (0-2.5); HEMATOCRIT 33.3 % (35.0-45.0); HEMOGLOBIN 10.4 gm/dL (12.0-16.0); MEAN CELL VOLUME 82.8 FL (83-96); MEAN CORPUSCULAR HEMOGLOBIN 25.8 PG (28-34); MEAN CORPUSCULAR HGB CONC 31.2 g/dL (30-36); MEAN PLATELET VOLUME 8.7 FL (6.5-11.5); MONOCYTE# 1.8 X10e3 (0-1.0); NEUTROPHIL# 9.4 X10e3 (1.5-7.1); NEUTROPHIL% 70.7 % (40-75); PLATELET COUNT 172 X10e3 (140-420); RED BLOOD COUNT 4.02 X10e (3.90-5.30); RED CELL DISTRIBUTION WIDTH 13.2 % (11.0-15.5); WHITE BLOOD COUNT 13.2 X10e3 (4.0-10.5)
[2016-09-30 04:17] LABS: DIFF IND NO
[2016-10-01 04:05] LABS: HEMATOCRIT 29.8 % (35.0-45.0); HEMOGLOBIN 9.6 gm/dL (12.0-16.0); MEAN CELL VOLUME 81.5 FL (83-96); MEAN CORPUSCULAR HEMOGLOBIN 26.3 PG (28-34); MEAN CORPUSCULAR HGB CONC 32.2 g/dL (30-36); MEAN PLATELET VOLUME 8.7 FL (6.5-11.5); RED BLOOD COUNT 3.65 X10e (3.90-5.30); RED CELL DISTRIBUTION WIDTH 13.4 % (11.0-15.5)
[2016-10-01 04:09] LABS: WHITE BLOOD COUNT 6.4 X10e3 (4.0-10.5)
[2016-10-01 04:27] LABS: CALCIUM SERUM 8.8 mg/dL (8.4-10.2); CREATININE SERUM 0.5 mg/dL (0.6-1.4); GLOM FILT RATE Estimated 121.9 mL/min (>60); POTASSIUM 3.4 mmol/L (3.5-5.1)
[2016-10-01] MEDS ORDERED: ZOCOR20 MG PO (15:34)
[2016-10-01] MEDS ORDERED: VOLTAREN75 MG PO (15:34)
[2016-10-01] MEDS ORDERED: ARIMIDEX1 MG PO (15:35)
[2016-10-01] MEDS ORDERED: PROPRANOLOL HCL40 MG PO (15:35)
[2016-10-01] MEDS ORDERED: LIORESAL10 MG PO (15:36)
[2016-10-01] MEDS ORDERED: GABAPENTIN400 MG PO (15:36)
[2016-10-01] MEDS ORDERED: GABAPENTIN800 MG PO (15:36)
[2016-10-01] MEDS ORDERED: [UNRECOGNIZED DRUG - OTHER] PO (15:36)
[2016-10-01] MEDS ORDERED: VOLTAREN100 GM TOP (15:37)
[2016-10-01] MEDS ORDERED: DIPHENHYDRAMINE50 M1 PO (15:37)
[2016-10-02 02:29] LABS: HEMATOCRIT 29.8 % (35.0-45.0); HEMOGLOBIN 9.4 gm/dL (12.0-16.0); MEAN CELL VOLUME 82.1 FL (83-96); MEAN CORPUSCULAR HEMOGLOBIN 26.1 PG (28-34); MEAN CORPUSCULAR HGB CONC 31.7 g/dL (30-36); MEAN PLATELET VOLUME 8.7 FL (6.5-11.5); RED BLOOD COUNT 3.63 X10e (3.90-5.30); RED CELL DISTRIBUTION WIDTH 13.3 % (11.0-15.5); WHITE BLOOD COUNT 7.4 X10e3 (4.0-10.5)
[2016-10-02 02:50] LABS: BUN/CREATININE RATIO 18.33; CALCIUM SERUM 8.7 mg/dL (8.4-10.2); CREATININE SERUM 0.6 mg/dL (0.6-1.4); GLOM FILT RATE Estimated 114.8 mL/min (>60); MAGNESIUM 1.8 mg/dL (1.6-3.0); POTASSIUM 3.9 mmol/L (3.5-5.1)
[2016-10-03 03:33] LABS: BASOPHIL% 0.3 % (0-2.5); EOSINOPHIL% 0.2 % (0.0-7.0); HEMATOCRIT 32.1 % (35.0-45.0); HEMOGLOBIN 10.2 gm/dL (12.0-16.0); LYMPHOCYTE# 2.3 X10e3 (1.0-3.5); LYMPHOCYTE% 35.6 % (17.0-45.0); MEAN CELL VOLUME 81.5 FL (83-96); MEAN CORPUSCULAR HGB CONC 31.8 g/dL (30-36); MEAN PLATELET VOLUME 8.6 FL (6.5-11.5); MONOCYTE# 1.3 X10e3 (0-1.0); MONOCYTE% 19.6 % (3.0-12.0); NEUTROPHIL# 2.8 X10e3 (1.5-7.1); NEUTROPHIL% 44.3 % (40-75); PLATELET COUNT 206 X10e3 (140-420); RED BLOOD COUNT 3.94 X10e (3.90-5.30); RED CELL DISTRIBUTION WIDTH 13.5 % (11.0-15.5); WHITE BLOOD COUNT 6.4 X10e3 (4.0-10.5)
[2016-10-03 03:43] LABS: DIFF IND NO
[2016-10-03 04:12] LABS: BUN/CREATININE RATIO 14.28; CALCIUM SERUM 8.6 mg/dL (8.4-10.2); CREATININE SERUM 0.7 mg/dL (0.6-1.4); GLOM FILT RATE Estimated 109.1 mL/min (>60); POTASSIUM 4.2 mmol/L (3.5-5.1)
== END 2016-10-04 15:15 | DRG 872 ==
LOC: CED 22:21 → CEDOF 09-29 03:00 → C4C 09-29 07:57
PROVIDERS: Emergency Medicine; Internal Medicine
PROC: B24BZZZ Ultrasonography of Heart with Aorta (ICD-10-PCS; principal; 2016-09-30)
PROC: B24BZZ4 Ultrasonography of Heart with Aorta, Transesophageal (ICD-10-PCS; 2016-10-03)
PROC: 05HF33Z Insertion of Infusion Device into Left Cephalic Vein, Percutaneous Approach (ICD-10-PCS; 2016-10-03)
DX: A41.01 Sepsis due to Methicillin susceptible Staphylococcus aureus (principal); F25.9 Schizoaffective disorder, unspecified; E05.90 Thyrotoxicosis, unspecified without thyrotoxic crisis or storm; D64.9 Anemia, unspecified; M51.36 Other intervertebral disc degeneration, lumbar region; E66.9 Obesity, unspecified; J45.909 Unspecified asthma, uncomplicated; I34.0 Nonrheumatic mitral (valve) insufficiency; Z88.0 Allergy status to penicillin; Z85.43 Personal history of malignant neoplasm of ovary; Z90.710 Acquired absence of both cervix and uterus; Z86.711 Personal history of pulmonary embolism; M19.90 Unspecified osteoarthritis, unspecified site; R00.0 Tachycardia, unspecified; R42 Dizziness and giddiness; F41.0 Panic disorder [episodic paroxysmal anxiety]
CPT/HCPCS: 36415; 71010; 71275; 72157; 72158; 73723; 80048; 80076; 81003; 82550; 82553; 83605; 83735; 84439; 84443; 84484; 85025; 85027; 85610; 85730; 87040; 87077; 87186; 87804; 93005; 93306; 93312; 93970; 94640; 94760; 96361; 96374; 99285; A9577; J0690; J1650; J2250; J2270; J2405; J3010; J3370; Q9967

== ENCOUNTER 2017-03-26 14:22 | Emergency (ER) | payer OTHER ==
[~2017-03-26] VITALS: Ht 167.6 cm; Wt 97.5 kg
[~2017-03-26 14:22] MED LIST changes: +ARIMIDEX1 MG PO; +DIPHENHYDRAMINE50 M1 PO; +GABAPENTIN400 MG PO; +GABAPENTIN800 MG PO; +LIORESAL10 MG PO; +PROPRANOLOL HCL40 MG PO; +VOLTAREN100 GM TOP; +ZOCOR20 MG PO; +[UNRECOGNIZED DRUG - OTHER] PO
[2017-03-26 16:02] LABS: URINE SOURCE CLEAN CATCH
[2017-03-26 16:18] LABS: URINE APPEARANCE CLOUDY; URINE BILIRUBIN NEG (NEG); URINE BLOOD NEG (NEG); URINE COLOR YELLOW; URINE GLUCOSE NEG (NEG); URINE KETONE TRACE (NEG); URINE LEUKOCYTE ESTERASE 1+ (NEG); URINE NITRATE NEG (NEG); URINE PROTEIN TRACE (NEG)
[2017-03-26 16:19] LABS: CULTURE INDICATED? YES; URINE BACTERIA AUWI 2+ (NEGATIVE); URINE SQUAMOUS EPITHELIAL CELL MOD /[HPF]; UWBCS1 AUWI 25-50 (0-5)
== END 2017-03-26 16:48 | disposition home or self-care (01) ==
LOC: CED 14:22 → CFTX 14:22
PROVIDERS: Physician Assistant
DX: N39.0 Urinary tract infection, site not specified (principal); M54.5 Low back pain; G89.29 Other chronic pain; I10 Essential (primary) hypertension; J45.909 Unspecified asthma, uncomplicated; Z90.710 Acquired absence of both cervix and uterus
CPT/HCPCS: 81003; 87086; 96372; 99283; J1885